=== PATIENT | male | born 2000 | race Caucasian/White ===

== ENCOUNTER 2021-04-26 13:13 | Emergency (ER) | payer SELFPAY ==
[2021-04-26 13:15] VITALS: BP 149/95; PULSE 70; RESP 13; TEMP 37; O2SAT 99
--- NOTE | 2021-04-26 13:21 | ECG_ITS ---
Measurements Intervals [place] Rate: 71 P: 81 NC: 153 QRS: 55 QRSD: 86 T: 41 QT: 355 QTc: 388 Interpretive Statements SINUS RHYTHM POSSIBLE LEFT ATRIAL ENLARGEMENT BORDERLINE ECG Electronically Signed On 04-26-2021 13:32:37 CDT by Hugo Ross D.O.
--- NOTE | 2021-04-26 15:00 | ED.GENADULT ---
HPI - General Adult General Chief complaint: Chest Pain Stated complaint: CP,SOB,FEVER Time Seen by Provider: 04/26/21 14:28 Source: patient Mode of arrival: EMS Limitations: no limitations History of Present Illness HPI narrative: 21-year-old with no major medical problems here with complaints of chest pain body tingling and cramping for past few hours. 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 Patient states that he feeling much better his symptoms have subsided. He denied any nausea or vomiting or shortness of breath. Onset (ago): hour(s) (4) Severity: moderate Relieving factors: none Exacerbating factors: none Associated symptoms: denies other symptoms Related Data Home Medications Medication Instructions Recorded Confirmed No Home Medications 04/26/21 04/26/21 Allergies Allergy/AdvReac Type Severity Reaction Status Date / Time No Known Allergies Allergy Verified 04/26/21 13:25 Review of Systems Review of Systems: All systems reviewed & are unremarkable except as noted in HPI and below Constitutional: Constitutional: Reports no additional constitutional complaints Eyes: Eyes: Reports no additional eye complaints ENT: Reports system reviewed and no additional complaints, except as documented Cardiovascular: Cardiovascular: Reports as per HPI Respiratory: Respiratory: Reports no additional respiratory complaints Gastrointestinal: Gastrointestinal: Reports no additional gastrointestinal complaints Musculoskeletal: Musculoskeletal: Reports as per HPI Exam Narrative: Exam Narrative: GENERAL: Well-appearing, well-nourished, and in no acute distress. HEAD: Normocephalic, atraumatic. EYES: PERRLA and EOMI.. NECK: Supple. CHEST: Clear to auscultation. No respiratory distress. HEART: Regular rate and rhythm. No murmur heard. Normal peripheral pulses. ABDOMEN: Soft, nontender, nondistended, normal active bowel sounds. EXTREMITIES: Normal range of motion. No edema. SKIN: Warm, dry, no rash. NEURO: No focal deficits. Alert and oriented x3. PSYCH: Normal mood and affect. Course Course Emergency Course: Patient remained asymptomatic here in the ER I have given IV fluids I reviewed EKG with him. He does feel comfortable going home. Vital Signs Vital signs: Vital Signs Temperature 37.0 C 04/26/21 13:15 Pulse Rate 70 04/26/21 13:15 Respiratory Rate 13 04/26/21 13:15 Blood Pressure 149/95 H 04/26/21 13:15 Pulse Oximetry 99 04/26/21 13:15 Temperature 37.0 C 04/26/21 13:15 Pulse Rate 70 04/26/21 13:15 Respiratory Rate 13 04/26/21 13:15 Blood Pressure 149/95 H 04/26/21 13:15 Pulse Oximetry 99 04/26/21 13:15 Medical Decision Making Vital Signs Vital Signs: Vital Signs Temperature 37.0 C 04/26/21 13:15 Pulse Rate 70 04/26/21 13:15 Respiratory Rate 13 04/26/21 13:15 Blood Pressure 149/95 H 04/26/21 13:15 Pulse Oximetry 99 04/26/21 13:15 Temperature 37.0 C 04/26/21 13:15 Pulse Rate 70 04/26/21 13:15 Respiratory Rate 04/26/21 13:15 Blood Pressure 149/95 H 04/26/21 13:15 Pulse Oximetry 99 04/26/21 13:15 ECG Data EKG #1: ECG completion date: 04/26/21 ECG completion time: 13:18 EKG Interpretation: normal rate (71), no ectopy, no ST changes, normal QRS, NL axis and no acute changes Discharge Plan Discharge Clinical Impression: Heat exhaustion Qualifiers: Encounter type: initial encounter Qualified Code(s): T67.5XXA - Heat exhaustion, unspecified, initial encounter Patient Disposition: Home, Self-Care Condition: Stable Instructions: Antibiotic Form, Heat Exhaustion (ED) Additional Instructions: Advised to drink plenty of fluids, rest take Tylenol for pain as needed Prescriptions: No Action No Home Medications RF: 0 Follow-up/Referrals: PHYSICIAN,[facility] [Primary Care Provider] - Joe Ramírez MD [Physician] - Time of Disp
[2021-04-26] MEDS: SODIUM CHLORIDE 0.9% IV 1,000 ML 1000 ML (15:04)
[2021-04-26 15:36] VITALS: BP 94/63; PULSE 63; RESP 18; O2SAT 100
== END 2021-04-26 15:38 | disposition home or self-care (01) ==
PROVIDERS: Emergency Provider Family Medicine
DX: T67.5XXA Heat exhaustion, unspecified, initial encounter (principal)
CPT/HCPCS: 93005; 96360; 99283; J7030